=== PATIENT | male | born 1990 | race Caucasian/White ===

== ENCOUNTER 2018-01-07 23:52 | Emergency (ER) | payer MEDICAID ==
[2018-01-08] MEDS ORDERED: CEPHALEXIN 500 MG CAPSULE PO ONE (00:12)
[2018-01-08] MEDS ORDERED: HYDROCODONE/ACETAMINOPHEN 5-325 MG (6 TAB/ER DISP) PO PRN (00:12)
[2018-01-08] MEDS ORDERED: SULFAMETHOXAZOLE/TRIMETHOPRIM 800-160 MG TABLET PO ONE (00:12)
--- NOTE | 2018-01-08 00:14 | ER Document Report ---
HPI - HPI Patient complains to provider of: Abscess Onset: Other - 3 days Onset/Duration: Persistent Quality of pain: Achy Pain Level: 3 Context: Patient complains of abscess to left shoulder for the past 3 days. She states that he did squeeze on the skin lesion and had purulent drainage. Patient reports cleaning the wound out with peroxide. Associated Symptoms: Other - Abscess to left shoulder. denies: Fever Exacerbated by: Movement Relieved by: Denies Similar symptoms previously: Yes Recently seen / treated by doctor: No - ROS ROS below otherwise negative: Yes Systems Reviewed and Negative: Yes All other systems reviewed and negative - CONSTITUTIONAL Constitutional: DENIES: Fever, Chills - GASTROINTESTINAL Gastrointestinal: DENIES: Nausea - MUSCULOSKELETAL Musculoskeletal: REPORTS: Extremity pain - DERM Skin Color: Erythema Past Medical History - General Information source: Patient - Social History Smoking Status: Current Every Day Smoker Smoking Education Provided: Yes Frequency of alcohol use: None Drug Abuse: None Occupation: constructions Family History: None - Medical History Medical History: Negative Renal/ Medical History: Denies: Hx Peritoneal Dialysis Surgical Hx: Negative - Immunizations Immunizations up to date: Yes Hx Diphtheria, Pertussis, Tetanus Vaccination: Yes Vertical Provider Document - CONSTITUTIONAL Agree With Documented VS: Yes Exam Limitations: No Limitations General Appearance: WD/WN, No Apparent Distress - INFECTION CONTROL TRAVEL OUTSIDE OF THE [place] IN LAST 30 DAYS: No - HEENT HEENT: Atraumatic, Normocephalic - NECK Neck: Normal Inspection - RESPIRATORY Respiratory: Breath Sounds Normal, No Respiratory Distress - CARDIOVASCULAR Cardiovascular: Regular Rate, Regular Rhythm - BACK Back: Normal Inspection - MUSCULOSKELETAL/EXTREMETIES Musculoskeletal/Extremeties: JUN LAMAR - NEURO Level of Consciousness: Awake, Alert, Appropriate Motor/Sensory: No Motor Deficit - DERM Integumentary: Warm, Dry, Abscess Adult Front & Back Diagram: 1 - Spontaneously draining abscess to left upper shoulder, area surrounding wound is erythematous and indurated. Course - Vital Signs Vital signs: Temp Pulse Resp BP Pulse Ox 98.9 F 104 H 16 152/83 H 98 01/07/18 23:55 01/07/18 23:55 01/07/18 23:55 01/07/18 23:55 01/07/18 23:55 Discharge - Discharge Clinical Impression: Abscess Condition: Stable Disposition: HOME, SELF-CARE Instructions: Abscess ([facility]), Cephalexin ([facility]), Oral Narcotic Medication ([facility]), Trimethoprim-Sulfa ([facility]), Warm Packs ([facility]) Additional Instructions: Return immediately for any new or worsening symptoms Followup with your primary care provider, call tomorrow to make a followup appointment Prescriptions: Cephalexin Monohydrate [Keflex 500 mg Capsule] 500 mg PO Q6H 5 Days capsule Naproxen [Naprosyn 250 Nmg Tablet] 1 tab PO BID #14 tablet Sulfamethoxazole/Trimethoprim [Bactrim Ds Tablet] 1 each PO BID #20 tablet Forms: Smoking Cessation Education, Return to Work Referrals: [facility] [Provider Group] - Follow up as needed
[2018-01-08 01:24] VITALS: BP 124/71
== END 2018-01-08 01:33 | disposition home or self-care (01) ==
LOC: ER 23:52
DX: L02.414 Cutaneous abscess of left upper limb (principal); F17.200 Nicotine dependence, unspecified, uncomplicated
CPT/HCPCS: 99283

== ENCOUNTER 2019-02-07 12:46 | Emergency (ER) | payer SELFPAY ==
[2019-02-07] MEDS ORDERED: HYDROMORPHONE HCL INJ/PF 2 MG/ML AMPULE IV ONE ×2 (12:56→14:52)
[2019-02-07 13:09] LABS: ABSOLUTE EOSINOPHILS # (AUTO) 0.1 10^3/uL (0.0-0.6); ABSOLUTE LYMPHOCYTES (AUTO) 2.3 10^3/uL (0.5-4.7); ABSOLUTE MONOCYTES (AUTO) 0.5 10^3/uL (0.1-1.4); ABSOLUTE NEUT (AUTO) 5.2 10^3/uL (1.7-8.2); BASOPHILS % (AUTO) 0.3 % (0-2); EOSINOPHILS % (AUTO) 1.2 % (0-6); HEMATOCRIT 42.5 % (37.9-51.0); HEMOGLOBIN 14.9 g/dL (13.5-17.0); LYMPHOCYTES % (AUTO) 28.7 % (13-45); MEAN CORPUSCULAR HEMOGLOBIN 32.9 pg (27.0-33.4); MEAN CORPUSCULAR VOLUME 94 fl (80-97); MONOCYTES % (AUTO) 6.5 % (3-13); PLATELET COUNT 176 10^3/uL (150-450); RED BLOOD COUNT 4.52 10^6/uL (4.35-5.55); SEGMENTED NEUTROPHILS % (AUTO) 63.3 % (42-78); TOTAL CELLS COUNTED % (AUTO) 100 %; WHITE BLOOD COUNT 8.1 10^3/uL (4.0-10.5)
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
[2019-02-07 13:21] LABS: ALBUMIN 3.7 g/dL (3.5-5.0); ALKALINE PHOSPHATASE 41 U/L (38-126); ANION GAP 6 (5-19); ASPARTATE AMINO TRANSFERASE 115 U/L (17-59); BILIRUBIN,DIRECT 0.1 mg/dL (0.0-0.4); BILIRUBIN,TOTAL 0.6 mg/dL (0.2-1.3); BLOOD UREA NITROGEN 7 mg/dL (7-20); CALCIUM 9.2 mg/dL (8.4-10.2); CARBON DIOXIDE 28 mmol/L (22-30); CHLORIDE 106 mmol/L (98-107); GLUCOSE 104 mg/dL (75-110); POTASSIUM 3.9 mmol/L (3.6-5.0); TOTAL PROTEIN 6.4 g/dL (6.3-8.2)
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
[2019-02-07 13:58] LABS: INTERNATIONAL RATION (INR) 0.98; PARTIAL THROMBOPLASTIN TIME 26.7 SEC (23.5-35.8)
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
--- NOTE | 2019-02-07 14:20 | RADIOLOGY REPORT (SQ) ---
EXAM DESCRIPTION: TIB FIB BILAT 2 VIEWS COMPLETED DATE/TIME: 02/07/2019 2:06 pm REASON FOR STUDY: bone tenderness COMPARISON: None. NUMBER OF VIEWS: Two views right tibia. Two views left tibia. TECHNIQUE: Two radiographic images acquired of the right and left tibia and fibula to include the kn ee and ankle in at least one projection. LIMITATIONS: None. FINDINGS: MINERALIZATION: Normal. BONES: No acute fracture or dislocation. No worrisome bone lesions. SOFT TISSUES: No obvious swelling or foreign body. OTHER: No other significant finding. IMPRESSION: NEGATIVE STUDY OF THE RIGHT AND LEFT TIBIA AND FIBULA. NO RADIOGRAPHIC EVIDENCE OF ACUTE INJURY. TECHNICAL DOCUMENTATION: JOB ID: [id number] [employer]- All Rights Reserved Reading location - IP/workstation name: [email or web address]
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
[2019-02-07] MEDS ORDERED: KETOROLAC TROMETHAMINE INJ/PF 30 MG/1 ML SDV IV ONE (14:51)
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
[2019-02-07 16:50] VITALS: BP 139/93
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
== END 2019-02-07 17:21 | disposition home or self-care (01) ==
LOC: ER 12:46
DX: T14.8XXA Other injury of unspecified body region, initial encounter (principal); M25.551 Pain in right hip; M25.522 Pain in left elbow; M25.532 Pain in left wrist; M25.562 Pain in left knee; M25.561 Pain in right knee; M79.671 Pain in right foot; M79.672 Pain in left foot; V86.56XA Driver of dirt bike or motor/cross bike injured in nontraffic accident, initial encounter; F17.200 Nicotine dependence, unspecified, uncomplicated
CPT/HCPCS: 36415; 85025; 85610; 85730; 80053; 71045; 73080; 73552; 73060; 73564 ×2; 73030; 73110; 73590; 73630; 70450; 72125; 74177; J1885; J1170; 96374; 96375; 99284

== ENCOUNTER 2019-02-10 09:49 | Emergency (ER) | payer SELFPAY ==
[2019-02-10] MEDS ORDERED: HYDROMORPHONE HCL INJ/PF 2 MG/ML AMPULE IM ONE (10:11)
[2019-02-10] MEDS ORDERED: SILVER SULFADIAZINE 1% CREAM 25 GM TP ONE (10:11)
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
[2019-02-10 11:03] VITALS: BP 129/85
== END 2019-02-10 11:02 | disposition home or self-care (01) ==
LOC: ER 09:49
DX: S90.415A Abrasion, left lesser toe(s), initial encounter (principal); S90.414A Abrasion, right lesser toe(s), initial encounter; S50.812A Abrasion of left forearm, initial encounter; S80.212A Abrasion, left knee, initial encounter; M25.562 Pain in left knee; V86.99XA Unspecified occupant of other special all-terrain or other off-road motor vehicle injured in nontraffic accident, initial encounter; F17.200 Nicotine dependence, unspecified, uncomplicated
CPT/HCPCS: L1830; J1170

== ENCOUNTER 2019-05-10 16:09 | Emergency (ER) | payer SELFPAY ==
[2019-05-10 16:26] VITALS: BP 126/74
[2019-05-10] MEDS ORDERED: PREDNISONE 20 MG TABLET PO ONE (16:51)
[2019-05-10] MEDS ORDERED: LIDOCAINE 5% (700 MG) TRANSDERMAL ADH..PATCH TP ONE (16:52)
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
== END 2019-05-10 17:50 | disposition home or self-care (01) ==
LOC: ER 16:09
DX: M79.602 Pain in left arm (principal); F17.200 Nicotine dependence, unspecified, uncomplicated
CPT/HCPCS: 99283; J7512